=== PATIENT | male | born 1990 | race Caucasian/White ===

== ENCOUNTER 2021-09-15 12:36 | Emergency (ER) | payer OTHER ==
[~2021-09-15 12:36] MED LIST: ANTIVERT 25MG T25 MG PO; BACTRIM DS TAB1 EACH PO; KEFLEX CAP 500500 MG PO
[2021-09-15 13:20] LABS: HEMOGLOBIN 15.7 gm/dl (14.0-17.5); RED BLOOD COUNT 5.28 M/UL (4.20-5.50)
[2021-09-15 13:39] LABS: BUN/CREATININE RATIO 15 (0-10)
[2021-09-15 13:54] LABS: BORDETELLA PARAPERTUSSIS Not Detected (Not Detectd); BORDETELLA PERTUSSIS Not Detected (Not Detectd); CHLAMYDIA PNEUMONIAE Not Detected (Not Detectd); CORONAVIRUS HKU1 Not Detected (Not Detectd); CORONAVIRUS NL63 Not Detected (Not Detectd); CORONAVIRUS OC43 Not Detected (Not Detectd); CORONOAVIRUS 229E Not Detected (Not Detectd); HUMAN METAPNEUMOVIRUS Not Detected (Not Detectd); INFLUENZA A Not Detected (Not Detectd); INFLUENZA B Not Detected (Not Detectd); MYCOPLASMA PNEUMONIAE Not Detected (Not Detectd); PARAINFLUENZA VIRUS 1 Not Detected (Not Detectd); PARAINFLUENZA VIRUS 2 Not Detected (Not Detectd); PARAINFLUENZA VIRUS 3 Not Detected (Not Detectd); PARAINFLUENZA VIRUS 4 Not Detected (Not Detectd); RESPIRATORY SYNCYTIAL VIRUS Not Detected (Not Detectd)
[2021-09-15 15:14] LABS: HUMAN RHINOVIRUS/ENTEROVIRUS DETECTED (Not Detectd); SARS-CoV-2 NOT DETECTED (Not Detectd)
== END 2021-09-15 17:27 | disposition home or self-care (01) ==
LOC: ER1 12:36
PROVIDERS: Emergency Medicine
DX: J06.9 Acute upper respiratory infection, unspecified (principal); Z20.822 Contact with and (suspected) exposure to COVID-19
CPT/HCPCS: 71045; 80053; 83605; 85025; 87040; 87081; 87633; 87880; 99284; J7030